=== PATIENT | female | born 1995 | race Two or more races ===

== ENCOUNTER 2022-03-04 20:16 | Emergency (ER) | payer MEDICAID ==
[~2022-03-04] VITALS: Ht 157.5 cm; Wt 90.0 kg
[2022-03-04 21:32] LABS: White Blood Cell 8.9 10^3/uL (4.4-10.8)
[2022-03-04 21:33] LABS: Basophils # (auto) 0.1 10 ^3/uL (0-0.2); Basophils % (auto) 0.8 % (0.0-2.0); Eosinophils # (auto) 0.2 10 ^3/uL (0-0.8); Eosinophils % (auto) 2.4 % (0.0-7.0); Hematocrit 38.2 % (36.0-46.0); Hemoglobin 12.4 g/dL (12.2-16.2); Lymphocytes # (auto) 2.4 10 ^3/uL (0.4-5.4); Mean Corpuscular Hemoglobin 25.9 pg (28.0-32.0); Mean Corpuscular Hgb Conc. 32.4 g/dL (32.0-36.0); Mean Corpuscular Volume 80.1 fL (80.0-100.0); Monocytes # (auto) 0.5 10 ^3/uL (0-1.3); Monocytes % (auto) 6.1 % (0.0-12.0); Neutrophils # (auto) 5.7 10 ^3/uL (1.6-8.6); Neutrophils % (auto) 63.7 % (37.0-80.0); Red Blood Cells 4.77 10^6/uL (4.0-5.20); Red Cell Distribution Width 13.1 % (11.8-14.3)
[2022-03-04 22:00] LABS: Albumin 3.3 g/dL (3.4-5.0); BUN/Creatinine Ratio 20.7; Calcium 8.7 mg/dL (8.5-10.1); Magnesium 2.4 mg/dL (1.6-2.6)
[2022-03-04 22:03] LABS: Bilirubin, Total 0.2 mg/dL (0.2-1.0); Total Protein 8.1 g/dL (6.4-8.2)
[2022-03-04] MEDS ORDERED: HYDROcodone-ACET 5/325MG TAB PO ONE (22:45)
[2022-03-04] MEDS ORDERED: KETOROLAC TROMETH 30 MG/ML 1ML VIAL IV ONE (22:45)
[2022-03-04] MEDS ORDERED: IOHEXOL 350 MG/ML 100ML IJ ONE (23:14)
[2022-03-05 02:22] VITALS: BP 131/77
== END 2022-03-05 02:24 | disposition home or self-care (01) ==
LOC: ER 20:16
DX: M25.562 Pain in left knee (principal); M25.561 Pain in right knee; M25.512 Pain in left shoulder; M25.511 Pain in right shoulder; M25.559 Pain in unspecified hip; Z90.49 Acquired absence of other specified parts of digestive tract
CPT/HCPCS: 36415; 71045; 71275; 80053; 83735; 84484; 84702; 85025; 85379; 93005; 99285; Q9967

== ENCOUNTER 2023-10-27 01:26 | Emergency (ER) | payer MEDICAID ==
[~2023-10-27] VITALS: Ht 157.5 cm; Wt 59.0 kg
[2023-10-27 01:45] VITALS: BP 131/72; PULSE 92; RESP 13; O2SAT 100
[2023-10-27 02:11] LABS: Urine Bacteria NONE SEEN /hpf (None Seen); Urine Blood 3+ /uL (Negative); Urine Clarity CLOUDY (Clear); Urine Color Red (Yellow); Urine Protein, UAD 2+ (Negative); Urine Urobilinogen Normal (Negative); Urine WBC 511 /hpf (0 - 5); Urine WBC Clumps PRESENT /hpf (None Seen); Urine pH 6.5 (5.0-8.0)
[2023-10-27 02:17] LABS: Urine Specific Gravity 1.018 (1.001-1.035)
[2023-10-27] MEDS ORDERED: SULF800T23 PO (02:32)
[2023-10-27] MEDS ORDERED: ACET500T58 PO (02:32)
[2023-10-27] MEDS: cefTRIAXone SOD 1,000 MG VL IM ONE (02:39)
== END 2023-10-27 02:44 | disposition home or self-care (01) ==
LOC: ER 01:26
DX: N39.0 Urinary tract infection, site not specified (principal); Z32.02 Encounter for pregnancy test, result negative; Z90.49 Acquired absence of other specified parts of digestive tract
CPT/HCPCS: 81001; 81025; 96372; 99283; J0696